=== PATIENT | male | born 1995 | race African-American/Black ===

== ENCOUNTER 2020-02-19 13:39 | Inpatient (IN) | payer SELFPAY ==
[~2020-02-19 13:39] MED LIST: Dexamethasone 20 MG/5 ML VIAL ONE; Lidocaine 1% PF 5 ML VIAL ONE; Ondansetron PF 4 MG/2 ML Vial ONE; PHENYLEPHRINE-NS 100 MCG/ML 10 ML SYRINGE ONE; PROPOFOL 200 MG/20 ML VIAL ONE; Rocuronium Bromide 10 MG/ML (10ML VIAL) ONE; Succinylcholine Chloride 20 MG/ML 10 ml SYRINGE FS ONE
[2020-02-19] MEDS ORDERED: Fentanyl 100 MCG/2 ML VIAL ONE ×4 (13:45→16:55)
[2020-02-19] MEDS ORDERED: Adacel (T-DAP) 0.5 ML SYRINGE ONE (13:53)
[2020-02-19] MEDS ORDERED: Morphine 4 MG/ML VIAL SLOW IVP PRN (14:05)
[2020-02-19] MEDS ORDERED: Dextrose 5% in Water 1,000 ML IV PRN (14:05)
[2020-02-19] MEDS ORDERED: Ondansetron PF 4 MG/2 ML Vial IVP PRN (14:05)
[2020-02-19] MEDS ORDERED: Dextrose 50% Abboject 50 ML SYRINGE SLOW IVP PRN (14:05)
[2020-02-19] MEDS ORDERED: hydrALAZINE 20 MG/ML VIAL SLOW IVP PRN (14:05)
[2020-02-19] MEDS ORDERED: Morphine 2 MG/ML SYRINGE SLOW IVP PRN ×2 (14:05→20:19)
[2020-02-19] MEDS ORDERED: Midazolam HCl 2 mg/2 ml Vial ONE (14:07)
[2020-02-19] MEDS ORDERED: Ibuprofen 600 MG TAB PO PRN (14:08)
[2020-02-19] MEDS ORDERED: traMADol HCl 50 MG TAB PO PRN (14:08)
[2020-02-19 14:13] LABS: INR-International Normal Ratio 0.9; Prothrombin Time 12.4 SEC (12.0-14.7)
[2020-02-19 14:14] LABS: PTT 21.6 SEC (22.9-36.1)
[2020-02-19] MEDS ORDERED: Acetaminophen 500 MG TAB PO SCH ×2 (14:15→18:00)
[2020-02-19 14:16] LABS: ALT (SGPT) 15 U/L (8-55); AST (SGOT) 20 U/L (5-34); Albumin 4.1 g/dL (3.5-5.0); Alkaline Phosphatase 60 U/L (40-110); Anion Gap 11 mmol/L (10-20); BUN (Urea Nitrogen) 11 mg/dL (8.9-20.6); Bilirubin, Total 0.4 mg/dL (0.2-1.2); Calc. Creatinine Clearance 0 mL/min (70-130); Calcium 8.9 mg/dL (7.8-10.44); Carbon Dioxide 24 mmol/L (22-29); Chloride 105 mmol/L (98-107); Estimated GFR-MDRD Greater than 90; Globulin 3.2 g/dL (2.4-3.5); Glucose 117 mg/dL (70-105); Potassium 3.7 mmol/L (3.5-5.1); Protein, Total 7.3 g/dL (6.0-8.3); Sodium 136 mmol/L (136-145)
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
[2020-02-19 14:25] LABS: #Eosinphils 0.2 thou/uL (0.0-0.7); #Monocytes 1.3 thou/uL (0.11-0.59); #Neutrophils 10.2 thou/uL (1.40-6.50); %Basophils 0.1 % (0.0-1.0); %Eosinophils 1.6 % (0.0-10.0); %Lymphocytes 20.5 % (21.0-51.0); %Neutrophils 68.9 % (42.0-75.0); Mean Corpuscular HGB CONC 30.4 g/dL (32.0-36.0); Mean Corpuscular Hemoglobin 23.2 pg (27.0-31.0); Mean Corpuscular Volume 76.1 fL (78.0-98.0); Mean Platelet Volume 9.3 fL (7.4-10.4); Platelet Count 179 thou/uL (130-400); RBC Distribution Width 13.2 % (11.5-14.5); Red Blood Cell (RBC) Count 5.17 mill/uL (4.70-6.10); White Blood Cell (WBC) Count 14.8 thou/uL (4.8-10.8)
[2020-02-19] MEDS ORDERED: metroNIDAZOLE 500 MG in Premix Bag 1 BAG IVPB SCH (15:00)
[2020-02-19] MEDS ORDERED: cefTRIAXone\\ROCEPHIN 2 GM in Sodium Chloride 0.9% 100 ML IVPB SCH (15:00)
--- NOTE | 2020-02-19 16:24 | RAD ---
XR Shoulder Lt 2 View HISTORY: Comminuted fracture the left head and neck of humerus COMPARISON: Earlier today FINDINGS: 2 spot fluoroscopic intraoperative images of the left shoulder demonstrate interval reducti on and external pinning of the fractures of the head and neck of the left proximal humerus.
[2020-02-19] MEDS ORDERED: Ondansetron HCl/PF 4 MG/2 ML Vial IVP PRN (17:14)
[2020-02-19] MEDS ORDERED: Promethazine HCl 25 MG/ML VIAL IM PRN (17:14)
[2020-02-19] MEDS ORDERED: Promethazine HCl 25 MG/ML VIAL SLOW IVP PRN (17:14)
[2020-02-19] MEDS ORDERED: HYDROmorphone 2 MG/ML VIAL SLOW IVP PRN (17:14)
--- NOTE | 2020-02-19 17:24 | RAD ---
XR Shoulder Lt 2 View HISTORY: Fracture of the left proximal humerus COMPARISON: Earlier exam of 1:41 PM from same date FINDINGS: There has been interval reduction and internal fixation of the proximal humeral fracture si nce the comparison study. Placement of 3 pins. There are a couple of bony fragments superiorly.
[2020-02-19] MEDS ORDERED: HYDROmorphone 0.5 MG/0.5 ML SYRINGE ONE ×2 (17:28→17:45)
[2020-02-19] MEDS ORDERED: HYDROcodone/Acetaminophen 10/325 mg Tablet PO PRN ×2 (18:14)
[2020-02-19] MEDS: traMADol HCl 50 MG TAB PO PRN (18:44)
[2020-02-19] MEDS: Sodium Chloride 0.9% 1,000 ML IV SCH ×2 (18:46→23:27)
[2020-02-19 18:48] VITALS: BMI 25.1
[2020-02-19] MEDS: Senokot S 8.6-50 MG TAB PO SCH (20:28)
[2020-02-19] MEDS: Famotidine 20 MG TAB PO SCH (20:28)
[2020-02-19] MEDS: Gabapentin 300 MG CAP PO SCH (20:28)
[2020-02-19] MEDS ORDERED: Ketorolac Tromethamine 30 MG/ML VIAL IVP SCH (20:30)
[2020-02-19] MEDS: Ibuprofen 600 MG TAB PO SCH (20:30)
[2020-02-19] MEDS: Acetaminophen 325 MG TAB PO SCH (20:30)
[2020-02-19] MEDS: metroNIDAZOLE 500 MG in Premix Bag 1 BAG IVPB SCH (20:46)
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
[2020-02-19] MEDS ORDERED: CEFAZOLIN 2 GM in Premix Bag 1 BAG IVPB SCH (22:00)
[2020-02-20] MEDS: traMADol HCl 50 MG TAB PO PRN ×2 (00:58→07:20)
[2020-02-20] MEDS: Cyclobenzaprine 10 MG TAB PO PRN (00:58)
[2020-02-20] MEDS: Ibuprofen 600 MG TAB PO SCH ×4 (02:23→21:10)
[2020-02-20] MEDS: Acetaminophen 325 MG TAB PO SCH ×4 (02:24→21:10)
[2020-02-20] MEDS: metroNIDAZOLE 500 MG in Premix Bag 1 BAG IVPB SCH ×3 (05:41→21:11)
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
[2020-02-20] MEDS: Senokot S 8.6-50 MG TAB PO SCH ×2 (08:00→21:11)
[2020-02-20] MEDS: Famotidine 20 MG TAB PO SCH ×2 (08:00→21:11)
[2020-02-20] MEDS: Gabapentin 300 MG CAP PO SCH ×4 (08:00→21:10)
[2020-02-20] MEDS: Polyethylene Glycol 3350 17 GM Packet PO SCH (08:01)
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
[2020-02-20] MEDS: traMADol HCl 50 MG TAB PO SCH ×3 (11:06→21:09)
[2020-02-20] MEDS: cefTRIAXone\\ROCEPHIN 2 GM in Sodium Chloride 0.9% 100 ML IVPB SCH (14:20)
[2020-02-20] MEDS ORDERED: Morphine 4 MG/ML VIAL SLOW IVP PRN (23:55)
[2020-02-20] MEDS ORDERED: Morphine 2 MG/ML SYRINGE SLOW IVP PRN (23:55)
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
[2020-02-21] MEDS: Acetaminophen 325 MG TAB PO SCH ×4 (03:19→21:13)
[2020-02-21] MEDS: traMADol HCl 50 MG TAB PO SCH ×4 (03:19→21:12)
[2020-02-21] MEDS: Ibuprofen 600 MG TAB PO SCH ×4 (03:19→21:13)
[2020-02-21] MEDS: metroNIDAZOLE 500 MG in Premix Bag 1 BAG IVPB SCH ×3 (05:55→21:16)
[2020-02-21] MEDS: Enoxaparin Sodium 40 MG/0.4 ML SYRINGE SC SCH (08:08)
[2020-02-21] MEDS: Famotidine 20 MG TAB PO SCH ×2 (08:08→21:13)
[2020-02-21] MEDS: Senokot S 8.6-50 MG TAB PO SCH ×2 (08:09→21:13)
[2020-02-21] MEDS: Polyethylene Glycol 3350 17 GM Packet PO SCH (08:09)
[2020-02-21] MEDS: Gabapentin 300 MG CAP PO SCH ×3 (08:09→21:13)
[2020-02-21] MEDS ORDERED: Lidocaine 1% PF 5 ML VIAL ONE (10:16)
[2020-02-21] MEDS ORDERED: PROPOFOL 200 MG/20 ML VIAL ONE (10:16)
[2020-02-21] MEDS ORDERED: Ondansetron PF 4 MG/2 ML Vial ONE (10:16)
[2020-02-21] MEDS ORDERED: Morphine 2 MG/ML SYRINGE ONE (11:38)
[2020-02-21] MEDS ORDERED: Fentanyl 100 MCG/2 ML VIAL ONE ×2 (12:12→13:56)
[2020-02-21] MEDS ORDERED: Bacitracin Zinc Ointment 30 gm TUBE ONE (12:31)
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
[2020-02-21] MEDS ORDERED: Promethazine HCl 25 MG/ML VIAL SLOW IVP PRN (13:44)
[2020-02-21] MEDS ORDERED: Promethazine HCl 25 MG/ML VIAL IM PRN (13:44)
[2020-02-21] MEDS ORDERED: HYDROmorphone 2 MG/ML VIAL SLOW IVP PRN (13:44)
[2020-02-21] MEDS ORDERED: Ketorolac Tromethamine 30 MG/ML VIAL IVP PRN (13:44)
[2020-02-21] MEDS ORDERED: Meperidine HCl/PF 25 MG/ML VIAL SLOW IVP PRN (13:44)
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
[2020-02-21] MEDS: CEFAZOLIN 2 GM in Premix Bag 1 BAG IVPB SCH ×2 (14:58→21:16)
[2020-02-21] MEDS: cefTRIAXone\\ROCEPHIN 2 GM in Sodium Chloride 0.9% 100 ML IVPB SCH (15:02)
[2020-02-21] MEDS: Cyclobenzaprine 10 MG TAB PO PRN (21:50)
[2020-02-21] MEDS ORDERED: Morphine 2 MG/ML SYRINGE SLOW IVP SCH (23:00)
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
[2020-02-22] MEDS ORDERED: Acetaminophen 325 MG TAB PO SCH ×2 (03:00→06:36)
[2020-02-22] MEDS: Ibuprofen 600 MG TAB PO SCH ×4 (03:29→21:11)
[2020-02-22] MEDS: traMADol HCl 50 MG TAB PO SCH ×4 (03:29→21:14)
[2020-02-22 05:28] LABS: Band 1 % (5-11); Eosinophils 2 % (0-10); Hemoglobin 6.1 g/dL (14.0-18.0); Hypochromia SLIGHT = 6-15 cells (100X) (0-5/hpf); Lymphocytes 21 % (21-51); MDiff Complete? YES; Mean Corpuscular HGB CONC 29.4 g/dL (32.0-36.0); Mean Corpuscular Hemoglobin 23.2 pg (27.0-31.0); Mean Corpuscular Volume 78.9 fL (78.0-98.0); Mean Platelet Volume 8.5 fL (7.4-10.4); Monocytes 9 % (0-10); Neutrophil 67 % (42-75); Platelet Count 174 thou/uL (130-400); Platelet Morphology Comment Appears Adequate; RBC Distribution Width 13.1 % (11.5-14.5); Red Blood Cell (RBC) Count 2.62 mill/uL (4.70-6.10); White Blood Cell (WBC) Count 8.8 thou/uL (4.8-10.8)
[2020-02-22 05:35] LABS: Anion Gap 11 mmol/L (10-20); BUN (Urea Nitrogen) 6 mg/dL (8.9-20.6); Calc. Creatinine Clearance 157 mL/min (70-130); Carbon Dioxide 27 mmol/L (22-29); Chloride 104 mmol/L (98-107); Estimated GFR-MDRD Greater than 90; Glucose 105 mg/dL (70-105); Phosphorus 3.3 mg/dL (2.3-4.7); Potassium 4.1 mmol/L (3.5-5.1); Sodium 138 mmol/L (136-145)
[2020-02-22] MEDS: CEFAZOLIN 2 GM in Premix Bag 1 BAG IVPB SCH ×3 (05:58→21:12)
[2020-02-22] MEDS: metroNIDAZOLE 500 MG in Premix Bag 1 BAG IVPB SCH ×3 (05:58→21:13)
[2020-02-22 07:35] LABS: Hemoglobin 5.7 g/dL (14.0-18.0); Mean Corpuscular HGB CONC 30.1 g/dL (32.0-36.0); Mean Corpuscular Hemoglobin 23.6 pg (27.0-31.0); Mean Corpuscular Volume 78.6 fL (78.0-98.0); Mean Platelet Volume 8.2 fL (7.4-10.4); Platelet Count 159 thou/uL (130-400); Red Blood Cell (RBC) Count 2.42 mill/uL (4.70-6.10); White Blood Cell (WBC) Count 7.8 thou/uL (4.8-10.8)
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
[2020-02-22 09:02] LABS: Band 4 % (5-11); Hypochromia MODERATE=16-30 cells (100X) (0-5/hpf); Lymphocytes 38 % (21-51); MDiff Complete? YES; Metamyelocyte 1 % (0-0); Microcytosis SLIGHT = 6-15 cells (100X) (0-5/hpf); Monocytes 10 % (0-10); Neutrophil 47 % (42-75); Ovalocytes SLIGHT = 2-5 cells (100X) (0-1/hpf); Platelet Morphology Comment Appears Adequate; Polychromasia SLIGHT = 2-3 cells (100X) (0-2/hpf)
[2020-02-22] MEDS: Ferrous Sulfate 325 MG TAB PO SCH ×2 (09:21→16:54)
[2020-02-22] MEDS: Acetaminophen 500 MG TAB PO SCH ×3 (09:22→21:11)
[2020-02-22] MEDS: Senokot S 8.6-50 MG TAB PO SCH ×2 (09:23→21:11)
[2020-02-22] MEDS: Cyclobenzaprine 10 MG TAB PO PRN (09:23)
[2020-02-22] MEDS: Gabapentin 300 MG CAP PO SCH ×3 (09:24→21:11)
[2020-02-22] MEDS: Ascorbic Acid 500 mg Chewable Tablet PO SCH ×2 (09:24→21:11)
[2020-02-22] MEDS: Enoxaparin Sodium 40 MG/0.4 ML SYRINGE SC SCH (09:25)
[2020-02-22] MEDS: Polyethylene Glycol 3350 17 GM Packet PO SCH (09:29)
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
[2020-02-22] MEDS: cefTRIAXone\\ROCEPHIN 2 GM in Sodium Chloride 0.9% 100 ML IVPB SCH (14:27)
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
[2020-02-23] MEDS: Acetaminophen 500 MG TAB PO SCH ×4 (03:57→20:12)
[2020-02-23] MEDS: Ibuprofen 600 MG TAB PO SCH ×5 (03:57→21:14)
[2020-02-23] MEDS: traMADol HCl 50 MG TAB PO SCH ×4 (05:03→21:14)
[2020-02-23 05:36] LABS: Band 6 % (5-11); Eosinophils 3 % (0-10); Hemoglobin 7.2 g/dL (14.0-18.0); Lymphocytes 25 % (21-51); MDiff Complete? YES; Mean Corpuscular Hemoglobin 24.8 pg (27.0-31.0); Mean Platelet Volume 7.8 fL (7.4-10.4); Monocytes 9 % (0-10); Neutrophil 56 % (42-75); Platelet Count 215 thou/uL (130-400); Platelet Morphology Comment Appears Adequate; RBC Distribution Width 14.2 % (11.5-14.5); Red Blood Cell (RBC) Count 2.89 mill/uL (4.70-6.10)
[2020-02-23] MEDS: metroNIDAZOLE 500 MG in Premix Bag 1 BAG IVPB SCH ×3 (05:37→21:17)
[2020-02-23] MEDS: CEFAZOLIN 2 GM in Premix Bag 1 BAG IVPB SCH (05:37)
[2020-02-23 05:41] LABS: Anion Gap 11 mmol/L (10-20); BUN (Urea Nitrogen) 5 mg/dL (8.9-20.6); Calc. Creatinine Clearance 159 mL/min (70-130); Calcium 8.1 mg/dL (7.8-10.44); Carbon Dioxide 28 mmol/L (22-29); Chloride 101 mmol/L (98-107); Estimated GFR-MDRD Greater than 90; Glucose 121 mg/dL (70-105); Magnesium 1.9 mg/dL (1.6-2.6); Phosphorus 3.6 mg/dL (2.3-4.7); Potassium 3.9 mmol/L (3.5-5.1); Sodium 136 mmol/L (136-145)
[2020-02-23] MEDS: Polyethylene Glycol 3350 17 GM Packet PO SCH (09:23)
[2020-02-23] MEDS: Enoxaparin Sodium 40 MG/0.4 ML SYRINGE SC SCH (09:24)
[2020-02-23] MEDS: Senokot S 8.6-50 MG TAB PO SCH ×3 (09:25→21:42)
[2020-02-23] MEDS: Ferrous Sulfate 325 MG TAB PO SCH ×2 (09:26→15:41)
[2020-02-23] MEDS: Gabapentin 300 MG CAP PO SCH ×4 (09:26→21:14)
[2020-02-23] MEDS: Ascorbic Acid 500 mg Chewable Tablet PO SCH ×2 (09:26→20:12)
[2020-02-23] MEDS: cefTRIAXone\\ROCEPHIN 2 GM in Sodium Chloride 0.9% 100 ML IVPB SCH (14:20)
[2020-02-24] MEDS: Ibuprofen 600 MG TAB PO SCH ×2 (02:56→09:29)
[2020-02-24] MEDS: Acetaminophen 500 MG TAB PO SCH ×2 (02:56→09:29)
[2020-02-24] MEDS: Cyclobenzaprine 10 MG TAB PO PRN (03:21)
[2020-02-24] MEDS: traMADol HCl 50 MG TAB PO SCH ×2 (03:30→09:35)
[2020-02-24] MEDS: metroNIDAZOLE 500 MG in Premix Bag 1 BAG IVPB SCH (05:24)
[2020-02-24 07:27] VITALS: BP 149/76; TEMP 97.8
[2020-02-24 08:39] LABS: #Eosinphils 0.2 thou/uL (0.0-0.7); #Lymphocytes 1.9 thou/uL (1.20-3.40); #Monocytes 0.8 thou/uL (0.11-0.59); #Neutrophils 5.3 thou/uL (1.40-6.50); %Basophils 0.2 % (0.0-1.0); %Lymphocytes 22.5 % (21.0-51.0); %Monocytes 10.1 % (0.0-10.0); %Neutrophils 64.3 % (42.0-75.0); Hemoglobin 7.9 g/dL (14.0-18.0); Mean Corpuscular HGB CONC 30.1 g/dL (32.0-36.0); Mean Corpuscular Hemoglobin 23.8 pg (27.0-31.0); Mean Corpuscular Volume 78.8 fL (78.0-98.0); Mean Platelet Volume 7.2 fL (7.4-10.4); Platelet Count 306 thou/uL (130-400); RBC Distribution Width 14.8 % (11.5-14.5); Red Blood Cell (RBC) Count 3.31 mill/uL (4.70-6.10); White Blood Cell (WBC) Count 8.3 thou/uL (4.8-10.8)
[2020-02-24] MEDS: Polyethylene Glycol 3350 17 GM Packet PO SCH (09:27)
[2020-02-24] MEDS: Senokot S 8.6-50 MG TAB PO SCH (09:27)
[2020-02-24] MEDS: Ferrous Sulfate 325 MG TAB PO SCH (09:29)
[2020-02-24] MEDS: Gabapentin 300 MG CAP PO SCH (09:29)
[2020-02-24] MEDS: Enoxaparin Sodium 40 MG/0.4 ML SYRINGE SC SCH (09:29)
[2020-02-24] MEDS: Ascorbic Acid 500 mg Chewable Tablet PO SCH (09:29)
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
== END 2020-02-24 11:51 | disposition home or self-care (01) | DRG 493 ==
LOC: ERS 13:39 → SURG A 14:35 → SDC 14:42 → SURG A 18:31
PROVIDERS: ADMIT Specialist; ATTEND Specialist
PROC: 0PSD04Z Reposition Left Humeral Head with Internal Fixation Device, Open Approach (ICD-10-PCS; principal; 2020-02-19)
PROC: 0JCF0ZZ Extirpation of Matter from Left Upper Arm Subcutaneous Tissue and Fascia, Open Approach (ICD-10-PCS; 2020-02-19)
PROC: 0PDD0ZZ Extraction of Left Humeral Head, Open Approach (ICD-10-PCS; 2020-02-21)
PROC: 0JCF0ZZ Extirpation of Matter from Left Upper Arm Subcutaneous Tissue and Fascia, Open Approach (ICD-10-PCS; 2020-02-21)
PROC: 30233N1 Transfusion of Nonautologous Red Blood Cells into Peripheral Vein, Percutaneous Approach (ICD-10-PCS; 2020-02-22)
DX: S42.202B Unspecified fracture of upper end of left humerus, initial encounter for open fracture (principal); D62 Acute posthemorrhagic anemia; M79.5 Residual foreign body in soft tissue; S44 Injury of nerves at shoulder and upper arm level; V47.5XXA Car driver injured in collision with fixed or stationary object in traffic accident, initial encounter; Z87.891 Personal history of nicotine dependence
CPT/HCPCS: 36415; 36416; 36430; 71045; 76000; 80048; 80053; 83735; 84100; 85007; 85025; 85027; 85610; 85730; 86850; 86900; 86901; 90715; C1713; G0390; J0690; J0696; J1100; J1170; J1650; J1885; J2001; J2250; J2270; J2405; J2704; J3010; J3370; J3490; P9016

== ENCOUNTER 2020-03-05 11:39 | Outpatient (CLI) | payer OTHER ==
[2020-03-05 17:40] LABS: SARS-CoV-2 MS2 Positive; SARS-CoV-2 N Gene Negative; SARS-CoV-2 S Gene Negative; SARS-CoV-2 orf1ab Negative
== END 2020-03-05 11:40 | disposition home or self-care (01) ==
LOC: LABBT 11:39
PROVIDERS: ATTEND Orthopaedic Surgery
DX: Z01.812 Encounter for preprocedural laboratory examination (principal); Z11.59 Encounter for screening for other viral diseases; S42.202A Unspecified fracture of upper end of left humerus, initial encounter for closed fracture
CPT/HCPCS: 87635; U0003